=== PATIENT | female | born 1940 | race Caucasian/White ===

== ENCOUNTER 2020-02-17 19:05 | Inpatient (IN) | payer MEDICARE ==
[~2020-02-17] VITALS: Ht 162.6 cm; Wt 68.9 kg
[~2020-02-17 19:05] MED LIST: BACTRIM DS TAB1 EACH PO; HYDROCHLOROTHIA25 M1 PO; HYDROCODON-ACE1 EACH PO; KEFLEX500 MG PO; NEXIUM40 MG PO
[2020-02-17 19:36] VITALS: BP 119/50
[2020-02-17 20:06] LABS: ABSOLUTE LYMPHOCYTES 1.1 thou/uL (0.8-5.3); ABSOLUTE MONOCYTES 0.5 thou/uL (0.0-1.2); ABSOLUTE NEUTROPHILS 7.6 thou/uL (1.6-8.1); BASOPHILS 0.3 %; HEMATOCRIT 37.2 % (37.0-47.0); HEMOGLOBIN 13.7 gm/dL (12.0-15.0); LYMPHOCYTES 11.9 %; MCH 31.7 pg (26.0-34.0); MCHC 36.7 g/dL (28.0-37.0); MCV 86.3 fL (80.0-100.0); MONOCYTES 5.6 %; MPV 9.4 fl. (7.2-11.1); NUCLEATED RBCS 0 /100WBC; PLATELET COUNT* 125 thou/uL (150-400); POLYS 82.2 %; RBC 4.31 mil/uL (4.20-5.00); RDW-CV 12.9 % (10.5-14.5); WBC 9.2 thou/uL (4.0-11.0)
[2020-02-17 20:19] LABS: BE 0.9 mmol/L (-2 to +3); PCO2 26.4 mmHg (35.0-45.0); PO2 79.2 mmHg (75.0-100.0); pH 7.541 (7.340-7.450)
[2020-02-17 21:03] LABS: CALCIUM 8.7 mg/dL (8.5-10.1); CREATININE 1.4 mg/dL (0.6-1.3); POTASSIUM 3.2 mmol/L (3.5-5.1)
[2020-02-17 21:08] LABS: ALBUMIN 3.4 g/dL (3.4-5.0); MAGNESIUM 1.8 mg/dL (1.8-2.4); TOTAL BILIRUBIN 0.9 mg/dL (<0.1-1.0); TOTAL PROTEIN 6.8 g/dL (6.4-8.2)
[2020-02-18] VITALS (8 sets, daily range): BP systolic 139–159; BP diastolic 50–65
--- NOTE | 2020-02-18 14:58 | EKG ---
[place] [address] ELECTROCARDIOGRAM REPORT Name: SILAS PAULINO Room: [address] ADM IN [facility]#: [id number] Admission: 02/17/20 Attend Phys: Sergio Lockhart Discharge: Date of : 40 Date of Service: 02/17/201957 Report #: [id number] THIS REPORT FOR: //name// [facility] ED Test Date: 2020-02-17 Test Time: 19:58:52 Pat Name: SILAS PAULINO Department: Room: [facility] Gender: F Lining Feller Blindstitch: LINDA : 1940 Requested By: Leelee Snyder Order Number: [id number] Elvia MD: Javed Ma Measurements Intervals [place] Rate: 73 P: 45 GA: 149 QRS: 34 QRSD: 142 T: 4 QT: 449 QTc: 495 Interpretive Statements Sinus rhythm Right bundle branch block Inferior infarct, age indeterminate Compared to ECG 07/10/2013 16:34:43 Right bundle-branch block now present Myocardial infarct finding still present Electronically Signed On 02-18-2020 14:58:30 CDT by Javed Ma [email or web address] <ELECTRONICALLY SIGNED> By: Javed Ma MD, [facility] 02/18/20 1458 57 57 Javed Ma MD, FAC /EPI
[2020-02-19] VITALS (7 sets, daily range): BP systolic 130–177; BP diastolic 49–79
[2020-02-19 05:07] LABS: ABSOLUTE LYMPHOCYTES 0.7 thou/uL (0.8-5.3); ABSOLUTE MONOCYTES 0.2 thou/uL (0.0-1.2); ABSOLUTE NEUTROPHILS 2.8 thou/uL (1.6-8.1); BASOPHILS 0.2 %; EOSINOPHILS 0.1 %; HEMATOCRIT 32.3 % (37.0-47.0); HEMOGLOBIN 11.8 gm/dL (12.0-15.0); LYMPHOCYTES 19.1 %; MCH 31.6 pg (26.0-34.0); MCHC 36.6 g/dL (28.0-37.0); MCV 86.2 fL (80.0-100.0); MONOCYTES 4.8 %; MPV 8.7 fl. (7.2-11.1); NUCLEATED RBCS 0 /100WBC; PLATELET COUNT* 102 thou/uL (150-400); POLYS 75.8 %; RBC 3.75 mil/uL (4.20-5.00); WBC 3.7 thou/uL (4.0-11.0)
[2020-02-19 05:08] LABS: POTASSIUM 3.3 mmol/L (3.5-5.1)
[2020-02-19] MEDS ORDERED: PRAVACHOL40 MG PO (18:02)
[2020-02-19] MEDS ORDERED: BUSPIRONE HCL10 MG PO (18:02)
[2020-02-19] MEDS ORDERED: METOPROLOL TART25 MG PO (18:04)
[2020-02-19] MEDS ORDERED: LISINOPRIL-HCT1 EAC2 PO (18:05)
[2020-02-20 08:00] VITALS: BP 173/70
[2020-02-20 20:10] VITALS: BP 177/76
[2020-02-21] VITALS: BP 100/67
[2020-02-21 04:42] LABS: ABSOLUTE LYMPHOCYTES 1.9 thou/uL (0.8-5.3); ABSOLUTE MONOCYTES 0.8 thou/uL (0.0-1.2); ABSOLUTE NEUTROPHILS 6.3 thou/uL (1.6-8.1); BASOPHILS 0.1 %; EOSINOPHILS 0.2 %; HEMATOCRIT 31.7 % (37.0-47.0); HEMOGLOBIN 11.8 gm/dL (12.0-15.0); LYMPHOCYTES 20.7 %; MCH 31.6 pg (26.0-34.0); MCHC 37.2 g/dL (28.0-37.0); MCV 85.1 fL (80.0-100.0); MONOCYTES 9.1 %; MPV 8.3 fl. (7.2-11.1); NUCLEATED RBCS 0 /100WBC; PLATELET COUNT* 174 thou/uL (150-400); POLYS 69.9 %; RBC 3.73 mil/uL (4.20-5.00)
[2020-02-21 04:53] LABS: ALBUMIN 2.4 g/dL (3.4-5.0); CALCIUM 8.3 mg/dL (8.5-10.1); CREATININE 0.9 mg/dL (0.6-1.3); TOTAL BILIRUBIN 0.4 mg/dL (<0.1-1.0); TOTAL PROTEIN 5.4 g/dL (6.4-8.2)
[2020-02-21 05:19] LABS: POTASSIUM 2.8 mmol/L (3.5-5.1)
[2020-02-21 13:56] VITALS: BP 167/67
[2020-02-21 16:57] VITALS: BP 188/64
[2020-02-21 20:00] VITALS: BP 179/77
[2020-02-22] VITALS (7 sets, daily range): BP systolic 138–180; BP diastolic 60–74
[2020-02-22] MEDS ORDERED: PROBIOTIC1 EAC6 PO (08:29)
[2020-02-22] MEDS ORDERED: CIPRO500 M1 PO (08:29)
[2020-02-22] MEDS ORDERED: DEXAMETHASONE 22 M1 PO (08:34)
== END 2020-02-22 16:50 | disposition home health service (06) | DRG 871 ==
LOC: M.ERS 19:05 → M.2W 20:44 → M.TBA-ER 20:44 → M.2W 02-18 13:55
PROVIDERS: Internal Medicine; Personal Emergency Response Attendant; ADMIT Family Medicine; ATTEND Family Medicine
DX: A02.1 Salmonella sepsis (principal); U07.1 COVID-19; N17.0 Acute kidney failure with tubular necrosis; E87.1 Hypo-osmolality and hyponatremia; E87.3 Alkalosis; I10 Essential (primary) hypertension; D69.6 Thrombocytopenia, unspecified; E86.0 Dehydration; Z90.49 Acquired absence of other specified parts of digestive tract; Z79.899 Other long term (current) drug therapy

== ENCOUNTER 2020-07-09 11:15 | Inpatient (IN) | payer MEDICARE ==
[~2020-07-09] VITALS: Ht 160 cm; Wt 70.3 kg
[2020-07-09] VITALS (15 sets, daily range): BP systolic 94–141; BP diastolic 37–68
--- NOTE | ~2020-07-09 | CON ---
[address] [address] CONSULTATION Name: SILAS PAULINO Room: [address] ADM IN [facility]#: [id number] Admission: 07/09/20 Attend Phys: Wild Boudreaux MD Discharge: Date of : 40 Report #: [id number] THIS REPORT FOR: cc: Florentin Burt MD, Matthew W. MD ~ Mike Jim MD DATE OF SERVICE: 07/09/2020 HISTORY OF PRESENT ILLNESS: This is an 80-year-old female patient who was evaluated by me for a stroke protocol. I had numerous conversations with the Emergency Room physician, I talked to the nurse looking after this patient, talked to shift lab technician who is there most of the time and had numerous conversations with the patient's daughter. This patient had presented to the Emergency Room with right-sided weakness and numbness. I was called when I was in [facility] and I talked to Emergency Room physician her NIH score was somewhat low. I asked him to talk to the family about the controversy surrounding TPA and low NIH patient's. It was not an approved indication and still is not, but people started giving it on a frequent basis, but then a study questioned that. Because of that, I talked to him that the family need to decide what they want to do because there is no clearcut guidelines and the guidelines are subjective. As I understand from the patient and from the record that was done because the patient and the family wanted TPA and when I came to Emergency Room, she has got a bolus and they have started the infusion. The patient's symptoms were becoming better. REVIEW OF SYSTEMS: Indicate that she did not have any stroke-like symptoms before. She does have a history of hypertension, gallbladder problem, esophageal stretching, hernia, open heart surgery in the past. At this time, she came with right-sided weakness, which was noticed on admission. Rest of the 14-point review of system was mostly noncontributory. PAST MEDICAL HISTORY: Negative for stroke. FAMILY HISTORY: Unremarkable. SOCIAL HISTORY: She lives with her daughter who share care and provided most of the history. PHYSICAL EXAMINATION: Indicate she is alert, responsive, able to follow simple and complex command. Her speech looks intact when I saw her. When I saw her, cranial nerve examination, she was [place] [address] CONSULTATION Name: SILAS PAULINO Room: [address] IN [facility]#: [id number] Admission: 07/09/20 Attend Phys: Wild Boudreaux MD Discharge: Date of : 40 Report #: [id number] examination was symmetrical. There is no cerebellar sign. I could not look at the patient's fundus. Cardiac examination is unremarkable. Her blood pressure was low and she says her blood pressure is low in the morning and high in the evening. It looks like it fluctuates a lot. LABORATORY DATA: Mostly unremarkable. PT, PTT was normal. Potassium was somewhat low and I pointed out to Emergency Room physician and he said that he will take care of that. IMPRESSION: 1. The patient presented with stroke-like symptoms. When I saw the patient that symptoms were not very impressive because the nurses mentioned that they have started to resolve. I had multiple conversations with the patient's daughter. I discussed with them the controversy surrounding TPA with low NIH scale. Her GFR was somewhat low, but her creatinine was normal. I talked to her about getting a CT angiogram done. I did discuss with her that there is some risk of kidney failure and she understood that, but I talked to Emergency Room physician, he was comfortable sending her for CT angiogram just to make sure I also called the radiologist and talked to the rfid technician and they both says that they will be now if the GFR is more than 30. CT angiogram did not show any abnormality. I cut back her TPA to 0.6 mg again after talking to the family, the pros and cons of doing that. That has been found to be equally effective. I did order an MRI, but MRI is not done yet. I went back and saw this patient again in the evening in ICU and she is doing well. She has no complication from TPA and she appeared to be neurologically back to her baseline. 2. We gave her a fluid bolus because her blood pressure was low and we left her on the fluid. We will check a BMP and if her potassium is okay and BUN and creatinine is okay, then I think it may be desirable to discontinue fluid. More than 70 minutes of time was spent taking care of this patient today and majority of time was spent counseling and coordinating the patient's care as summarized above. Thank you very much for this referral. By: 37 [id number] Jim MD /yeimy
[~2020-07-09 11:15] MED LIST changes: +BUSPIRONE HCL10 MG PO; +CIPRO500 M1 PO; +DEXAMETHASONE 22 M1 PO; +LISINOPRIL-HCT1 EAC2 PO; +METOPROLOL TART25 MG PO; +PRAVACHOL40 MG PO; +PROBIOTIC1 EAC6 PO
[2020-07-09] MEDS ORDERED: LIPITOR40 MG PO (11:41)
[2020-07-09] MEDS ORDERED: TWYNSTA PO (11:42)
[2020-07-09] MEDS ORDERED: LISINOPRIL5 MG PO (11:42)
[2020-07-09] MEDS ORDERED: TOPROL XL25 MG PO (11:42)
[2020-07-09] MEDS ORDERED: HYDROCHLOROTHIA25 M2 PO (11:42)
[2020-07-09 11:49] LABS: HEMATOCRIT 38.7 % (37.0-47.0); HEMOGLOBIN 13.1 gm/dL (12.0-15.0); MCH 30.3 pg (26.0-34.0); MCHC 33.9 g/dL (28.0-37.0); MCV 89.4 fL (80.0-100.0); RBC 4.33 mil/uL (4.20-5.00); RDW-CV 13.8 % (10.5-14.5); WBC 9.6 thou/uL (4.0-11.0)
[2020-07-09 11:51] LABS: CALCIUM 8.3 mg/dL (8.5-10.1); CREATININE 1.2 mg/dL (0.6-1.3)
[2020-07-09 11:55] LABS: APTT 20.5 Seconds (25.0-31.3); PROTIME 10.2 Seconds (9.20-11.50)
[2020-07-09 11:56] LABS: ALBUMIN 3.1 g/dL (3.4-5.0); TOTAL BILIRUBIN 0.8 mg/dL (<0.1-1.0); TOTAL PROTEIN 5.8 g/dL (6.4-8.2)
--- NOTE | 2020-07-09 12:30 | NUR ---
VICE PRESIDENT INTEGRATED: DURING TPA INFUSION DR. PALMER ASKED TO CHANGE TPA DOSE TO 0.6MG/KG TOTAL DOSE. INFUSION WAS INITIATED AT 12:01, BASED ON NEW DOSING ORDER, TOTAL DOSE WAS DETERMINED TO BE 42 MG OVER 60 MINUTES. PATIENT TPA RATE WAS ADJUSTED SO THAT THE REMAINING INFUSION WOULD RESULT IN TOTAL DOSE OF 42MG. THIS NEW RATE WAS CONFIRMED WITH NATALYA ALFREDO AT BEDSIDE WITH DR. PALMER.
[2020-07-09 13:43] LABS: URINE BILIRUBIN NEGATIVE (Negative); URINE BLOOD TRACE (Negative); URINE CLARITY CLEAR; URINE COLOR YELLOW; URINE GLUCOSE-RANDOM NEGATIVE (Negative); URINE KETONES NEGATIVE (Negative); URINE LEUKOCYTES 1+ (Negative); URINE NITRITE NEGATIVE (Negative); URINE PROTEIN NEGATIVE (Negative); URINE UROBILINOGEN 0.2 E.U./dl (0.2-1.0)
[2020-07-09 13:48] LABS: SQUAMOUS >10 Many /LPF (0-3)
[2020-07-09 13:49] LABS: BACTERIA >30 Many /HPF (None Seen); CASTS None Seen /LPF (None Seen); CRYSTALS None Seen /LPF (None Seen); MUCUS None Seen strn/LPF (None Seen); URINE RBC None Seen /HPF (0-2); URINE WBC 0-5 Rare /HPF (0-5)
--- NOTE | 2020-07-09 14:21 | EKG ---
[place] [address] ELECTROCARDIOGRAM REPORT Name: SILAS PAULINO Room: [address] ADM IN [facility].#: [id number] Admission: 07/09/20 Attend Phys: Wild Boudreaux, Discharge: Date of : 40 Date of Service: 07/09/20 1135 Report #: [id number] THIS REPORT FOR: //name// [facility] ED Test Date: 2020-07-09 Test Time: 11:35:49 Pat Name: SILAS PAULINO Department: Room: [facility] Gender: F Die Tester: RADHA : 1940 Requested By: Missael Herman Order Number: [id number] MD: Javed Ma Measurements Intervals [place] Rate: 52 P: 18 CA: 151 QRS: 43 QRSD: 139 T: 10 QT: 482 QTc: 449 Interpretive Statements Sinus rhythm Probable left atrial enlargement Right bundle branch block Inferior infarct, old Compared to ECG 02/17/2020 19:58:52 No significant changes Electronically Signed On 07-09-2020 14:21:29 DEPARTMENT OPERATIONS MANAGER by Javed Ma [email or web address] <ELECTRONICALLY SIGNED> By: Javed Ma MD, [facility] 07/09/20 1421 1135 1135 Javed Ma MD, [facility] /EPI
--- NOTE | 2020-07-09 15:53 | 2DMMODE ---
[place] [address] 2 D/M-MODE ECHOCARDIOGRAM Name: PAULINOSILAS A Room: [address] IN [facility]#: [id number] Admission: 07/09/20 Attend Phys: Wild Boudreaux, Discharge: Date of : 40 Date of Service: 07/09/20 1553 Report #: [id number] THIS REPORT FOR: cc: Florentin Burt MD, Matthew W. MD Holkins, John M. MD [facility] ~ APPROVED REPORT Study performed: 07/09/2020 15:07:43 EXAM: Comprehensive 2D, Doppler, and color-flow Echocardiogram Patient Location: In-Patient Room #: 006 Status: routine BSA: 1.80 HR: 61 bpm BP: 130/47 mmHg Rhythm: NSR Other Information Study Quality: Good Indications CVA/TIA Echo Enhancing Agent Indication: Rule out Shunt Agent(s) / Amount(s) Used: Agitated Saline 10 cc 2D Dimensions IVSd: 15.75 (7-11mm) LVOT Diam: 19.51 (18-24mm) LVDd: 35.13 mm PWd: 9.55 (7-11mm) Ascending Ao: 32.04 (22-36mm) LVDs: 17.66 (25-40mm) Aortic Root: 31.80 mm Volumes Left Atrial Volume (Systole) LA ESV Index: 38.30 mL/m2 Aortic Valve AoV Peak Daniel.: 1.57 m/s AO Peak Gr.: 9.87 mmHg LVOT Max P.64 mmHg AO Mean Gr.: 5.80 mmHg LVOT Mean P.80 [place] [address] 2 D/M-MODE ECHOCARDIOGRAM Name: SILAS PAULINO Room: [address] IN ..#: [id number] Admission: 07/09/20 Attend Phys: Wild Boudreaux, Discharge: Date of : 40 Date of Service: 07/09/20 1553 Report #: [id number] LVOT Max V: 1.55 m/s AO V2 VTI: 39.86 cm LVOT Mean V: 1.01 m/s ARIE (VTI): 2.92 cm2 LVOT V1 VTI: 38.92 cm Mitral Valve MV Mean Gr.: 2.21 mmHg E/A Ratio: 0.76 MV Decel. Time: 341.52 ms MV E Max Daniel.: 0.90 m/s MV PHT: 99.04 ms MVA (PHT): 2.22 cm2 TDI E/Lateral E': 9.00 E/Medial E': 15.00 Medial E' Daniel.: 0.06 m/s Lateral E' Daniel.: 0.10 m/s Pulmonary Valve PV Peak Daniel.: 1.38 m/s PV Peak Gr.: 7.56 mmHg Tricuspid Valve RAP Estimate: 5.00 mmHg TR Peak Gr.: 16.60 mmHg RVSP: 21.00 mmHg PA Pressure: 21.00 mmHg Left Ventricle The left ventricle is normal size. There is normal LV segmental wall motion. Mild to moderate concentric left ventricular hypertrophy. Left ventricular systolic function is normal. The left ventricular ejection fraction is within the normal range. LVEF is 65%. Grade I - abnormal relaxation pattern. Right Ventricle The right ventricle is normal size. The right ventricular systolic function is normal. Atria Left atrium is mildly dilated. The interatrial septum is intact with no evidence for an atrial septal defect. The right atrium size is normal. Aortic Valve Mild aortic valve sclerosis. No aortic regurgitation is present. There is no aortic valvular stenosis. Mitral Valve There is mitral annular calcification. Trace [place] [address] 2 D/M-MODE ECHOCARDIOGRAM Name: PAULINOSILAS A Room: [address]#: [id number] Admission: 07/09/20 Attend Phys: Wild Boudreaux, Discharge: Date of : 40 Date of Service: 07/09/20 1553 Report #: [id number] evidence of mitral valve stenosis. Tricuspid Valve The tricuspid valve is normal in structure. Mild tricuspid regurgitation. No pulmonary hypertension. Pulmonic Valve The pulmonary valve is normal in structure. Trace pulmonic regurgitation. Great Vessels The aortic root is normal in size. IVC is normal in size and collapses >50% with inspiration. Pericardium There is no pericardial effusion. <Conclusion> The left ventricle is normal size. Left ventricular systolic function is normal. The left ventricular ejection fraction is within the normal range. LVEF is 65%. Grade I - abnormal relaxation pattern. The right ventricle is normal size. Left atrium is mildly dilated. The right atrium size is normal. Mild aortic valve sclerosis. No aortic regurgitation is present. There is no aortic valvular stenosis. There is mitral annular calcification. The tricuspid valve is normal in structure. Mild tricuspid regurgitation. No pulmonary hypertension. IVC is normal in size and collapses >50% with inspiration. There is no pericardial effusion. There is normal LV segmental wall motion. The interatrial septum is intact with no evidence for an atrial septal defect. <ELECTRONICALLY SIGNED> By: Javed Ma MD, [facility] 07/09/20 1553 1553 155 Javed Ma MD, FACC /INF
[2020-07-10] VITALS (8 sets, daily range): BP systolic 109–145; BP diastolic 34–66
[2020-07-10 02:06] LABS: GLYCOHEMOGLOBIN (HGB A1C) 6.3 % (4.8-5.6)
--- NOTE | 2020-07-10 07:40 | NUR ---
ASSUMED PATIENT CARE AT 1900. ASSESSMENTS COMPLETED CHARTED. CARDIAC MONITORING IN PLACE. HOURLY ROUNDING IN PLACE FOR PATIENT SAFETY. BED LOCKED AND IN LOWEST POSITION. FALL PRECAUTIONS IN PLACE FOR PATIENT SAFETY. BED ALARM ON. CLWR.
--- NOTE | 2020-07-10 10:30 | NUR ---
MET WITH PATIENT REVIEWED STROKE PROGRAM AND MANAGEMENT OF STROKE RISK FACTORS. PATIENT REPORTS FEELING BETTER, IMPROVED WEAKNESS ON RIGHT SIDE, NO SPEECH DEFICIT, SLIGHT FACIAL DROOP.
[2020-07-10 13:22] LABS: HEMOGLOBIN 12.8 gm/dL (12.0-15.0); MCH 30.6 pg (26.0-34.0); MCHC 33.7 g/dL (28.0-37.0); MCV 90.5 fL (80.0-100.0); RBC 4.19 mil/uL (4.20-5.00); RDW-CV 14.3 % (10.5-14.5); WBC 6.6 thou/uL (4.0-11.0)
[2020-07-10 13:31] LABS: CALCIUM 8.2 mg/dL (8.5-10.1); CREATININE 0.9 mg/dL (0.6-1.3); MAGNESIUM 1.9 mg/dL (1.8-2.4); POTASSIUM 3.2 mmol/L (3.5-5.1)
[2020-07-10 14:00] LABS: CHOLESTEROL 165 mg/dL (<200); HDL CHOLESTEROL 30 mg/dL (>40); LDL CHOLESTEROL 73 mg/dL (<100); TC:HDL 5.5 Ratio (Not establshd); TRIGLYCERIDE 310 mg/dL (<150); VLDL 62 mg/dL (<40)
[2020-07-10 14:01] LABS: SERUM ASSESSMENT Clear
--- NOTE | 2020-07-10 14:06 | NUR ---
PT RETURNED FROM MRI. VSS.
--- NOTE | 2020-07-10 15:32 | NUR ---
ICU rounds: Admitted for CVA. Pt on phone when CM went to assess, will attempt to assess later
--- NOTE | 2020-07-10 16:43 | NUR ---
VSS. NIH REMAINS ZERO. ASSISTED PT TO BSC WITH SBA X4 TODAY, STEADY GAIT. 24HR POST-TPA CT, MRI, AND LABS COMPLETED. ALL RESULTS REPORTED TO DR PALMER WHO STATED PT CAN DOWNGRADE TO TELE FROM HIS PERSPECTIVE, LIKELY DC TOMORROW. PAGED DR DUMAS TO REPORT RESULTS & INQUIRE ABOUT DOWNGRADE, AWAITING RETURN CALL. DAUGHTER AT BEDSIDE AT THIS TIME. CALL LIGHT WITHIN REACH.
[2020-07-11] VITALS: BP 134/54
[2020-07-11 04:00] VITALS: BP 139/49
[2020-07-11 05:24] LABS: CALCIUM 7.8 mg/dL (8.5-10.1); CREATININE 0.9 mg/dL (0.6-1.3); MAGNESIUM 1.7 mg/dL (1.8-2.4)
[2020-07-11 05:26] LABS: POTASSIUM 4.5 mmol/L (3.5-5.1)
[2020-07-11] MEDS ORDERED: ADULT LOW DOSE81 MG PO (07:18)
[2020-07-11] MEDS ORDERED: PLAVIX 75 MG TA75 M1 PO (07:18)
[2020-07-11 08:00] VITALS: BP 149/60
[2020-07-11 09:36] VITALS: BP 149/60
--- NOTE | 2020-07-11 10:31 | NUR ---
INCOME TAX EXPERT: MET WITH PATIENT THIS AM. REVIEWED MEDICATION AND PLAN FOR DISCHARGE. DISCUSSED RISK FACTORS FOR STROKE , PATIENT ON MEDICATIONS PRIOR TO ADMISSION. DISCUSSED ANTIPLATELET THERAPY, ACTIVITY. NO QUESTIONS. ENCOURAGED PATIENT TO ENTER EMERGENCY CONTACT INFORMATION IN PHONE. [facility] LOCALLY. NO QUESTIONS OR CONCERNS. UNDERSTANDS SIGNS AND SYMPTOMS OF STROKE AND WHEN TO CALL 911.
[2020-07-11 12:00] VITALS: BP 141/65
--- NOTE | 2020-07-11 13:01 | NUR ---
RECEIVED REPORT AROUND 0715. [facility]. IV INTACT LEFT AC LEFT HAND. PT CAME UP THIS AM FROM ICU. HEART MONITOR NEVER PUT ON. PT DISCHARGE ORDERS PUT IN EARLY THIS AM. PT LYING IN BED. MEDS GIVEN PER JUL. IV'S TAKEN OUT. VS AND ASSESSMENT CHARTED. OT SAW PT AND HELPED WITH CLOTHES. DISCHARGE PACKET GIVEN TO PT. COMMUNICATED UNDERSTANDING. PT LEFT UNIT AT 1251 WITH NURSING STAFF AND ALL BELONGINGS VIA WHEEL CHAIR.
--- NOTE | 2020-07-11 13:23 | NUR ---
ORDERS RECEIVED, HOWEVER PATIENT DISCHARGED PRIOR TO P.T. ASSESSMENT. ANNALISA SHINE,MPT
== END 2020-07-11 12:51 | disposition home or self-care (01) | DRG 62 ==
LOC: M.ERS 11:15 → M.ICU 12:32 → M.TBA-ER 12:32 → M.ICU 14:04 → M.2W 07-11 07:33
PROVIDERS: Emergency Medicine; ADMIT Internal Medicine; ATTEND Internal Medicine
DX: I63.89 Other cerebral infarction (principal); G81.91 Hemiplegia, unspecified affecting right dominant side; K22.2 Esophageal obstruction; E87.6 Hypokalemia; I10 Essential (primary) hypertension; E66.9 Obesity, unspecified; Z20.822 Contact with and (suspected) exposure to COVID-19; M54.12 Radiculopathy, cervical region; I25.10 Atherosclerotic heart disease of native coronary artery without angina pectoris; R73.03 Prediabetes; Z79.899 Other long term (current) drug therapy; Z68.27 Body mass index [BMI] 27.0-27.9, adult